=== PATIENT | male | born 2000 | race Caucasian/White ===

== ENCOUNTER → 2020-12-15 09:44 | Outpatient (CLI) | payer OTHER, SELFPAY ==
--- NOTE | 2020-12-15 09:50 | DI.MRI.S_ITS ---
PROCEDURE: MR KNEE RT WO CON INDICATIONS: Pain Rt Knee TECHNIQUE: Noncontrast sagittal PD fast spin echo and T2 fast spin echo with fat saturation, sagittal 3-D FLASH with fat saturation; coronal T1 spin echo and PD fast spin echo with fat saturation, and axial PD fast spin echo with fat saturation through the knee. COMPARISON: None. FINDINGS: Image quality: There is mild inhomogeneous fat saturation. Menisci: There is mild intermediate signal in the posterior horn of the medial meniscus without a discrete tear involving an articular surface. The lateral meniscus demonstrates normal morphology and signal. The meniscal root ligaments appear intact. Cruciate ligaments: The anterior and posterior cruciate ligaments appear intact. Medial structures: The medial collateral ligament appears intact. The semimembranosus tendon insertions and meniscocapsular junction appear intact. Visualized portions of the pes anserinus tendons appear intact without associated bursal fluid collections. Lateral structures: The lateral collateral ligament, long and short heads of the biceps femoris tendon appear intact. The popliteus tendon appears intact. Iliotibial band appears normal. Anterior structures: The quadriceps and patellar tendons appear intact. There is mild lateral tilt and shift of the patella. No femoral trochlear dysplasia or ventral trochlear prominence. No edema in the infrapatellar fat pad. Bones and cartilage: No bone marrow contusions or fractures. There is mild cartilage thinning in the lateral patellofemoral compartment with mild superficial chondral fraying. The articular cartilage in the medial and lateral compartments appear preserved in thickness. Joint space: There is physiologic knee joint fluid. There is trace fluid in the expected region of a Diallo's cyst. Normal appearing synovial plicae are incidentally noted. IMPRESSION: 1. No definite acute internal derangement. 2. Mild lateral tilt and shift of the patella with mild cartilage thinning laterally in the patellofemoral compartment. No associated edema in the infrapatellar fat to suggest impingement but correlation is recommended clinically. Dictated by: Hiram Lucas M.D. on 12/17/2020 at 11:54 Approved by: Hiram Lucas M.D. on 12/17/2020 at 11:58
== END ==
PROVIDERS: Referring Provider Family Medicine; Visit Provider Family Medicine
DX: M25.561 Pain in right knee (principal)
CPT/HCPCS: 73721

== ENCOUNTER 2024-08-27 09:13 | Emergency (ER) | payer OTHER, SELFPAY ==
[2024-08-27] VITALS (7 sets, daily range): BP systolic 108–134; BP diastolic 58–85; PULSE 83–97; RESP 18; TEMP 36.8; O2SAT 95–99; BMI 31.7
--- NOTE | 2024-08-27 09:17 | ED_ITS ---
HPI - Fall General Chief Complaint: Extremity Injury, Lower Stated Complaint: fell, trouble walking, back pain Time Seen by Provider: 08/27/24 09:17 History of Present Illness HPI Narrative: 24-year-old male with past medical history of chronic low back/right hip pain status post right hips muscle surgery after trauma several years ago at [place], comes into the ED from home for evaluation of exacerbation of low back pain. States that on Thursday he was on top of a log slipped fell and landed onto his right junior and buttock region, Pap complaining of any pain to the right junior but having worsening of his low back pain to the right side. Normally uses a cane at baseline. Patient states he has not having any numbness weakness tingling above his baseline to his lower extremities, he denies any saddle paresthesias denies any bowel or urinary incontinence or retention. States that he is in the process following up with a pain management doctor for his chronic low back pain, however he states that he has not been able to manage this at home therefore decided come into the ED for further evaluation treatment. States that he did not have any head strike when he did have the fall. Not on any blood thinner no other injuries or complaints at this time Related Data Previous Rx's Medication Instructions Recorded diazepam 5 mg tablet (Valium) 5 mg PO BEDTIME PRN muscle spasm 5 08/27/24 days #5 tabs oxycodone-acetaminophen 5 mg-325 1 tab PO TID PRN pain 3 days #9 08/27/24 mg tablet (Percocet) tabs prednisone 20 mg tablet 40 mg (2 x 20 mg) PO DAILY 5 days 08/27/24 #10 tabs Allergies Allergy/AdvReac Type Severity Reaction Status Date / Time No Known Drug Allergies Allergy Verified 08/27/24 09:32 Review of Systems Review of Systems Narrative: General: Denies fever, chills, weight loss HEENT: Denies headache, eye drainage, eye irritation, head trauma, sore throat, voice change Cardiovascular: Denies any chest pain, palpitations, shortness of breath, tachycardia Respiratory: Denies any shortness of breath, cough, wheeze, stridor GI/: Denies any abdominal pain, nausea, vomiting, diarrhea, bright red blood per rectum, melanotic stools, urinary frequency, urinary retention, dysuria, hematuria MSK: Positive lumbar pain Skin: Denies any rashes, lesions, discoloration Neuro: Denies any headache, lightheadedness, dizziness, fainting, weakness Psych: Denies SI/HI Patient History Social History Smoking Status: Current every day smoker Exam Narrative Exam Narrative: General: Cooperative, comfortable, well-developed, not in acute distress HEENT: Normocephalic, atraumatic, PERRLA, normal sclera, eyelids normal, Neck: Active full range of motion, atraumatic Chest: Normal to inspection, negative crepitus, no overlying erythema ecchymosis Respiratory: Normal respiratory effort, not in acute respiratory distress, clear to auscultation bilaterally negative cough, wheeze, tachypnea, rhonchi, rales Cardiology: Regular rate rhythm negative gallop, murmur, rubs GI/: Normal to inspection, soft, nonrigid, no tenderness to palpation, exam deferred MSK: Full range of active range of motion of all 4 extremities, atraumatic, patient is able to stand walk however slowed with his cane which is his baseline, there is no tenderness to palpation of the midline lumbar thoracic spine however there is paraspinal tenderness to palpation in the right side along the gluteal muscle as well. Neurovascularly intact bilateral lower extremities Skin: No rashes lesions noted Neuro: Alert awake oriented x3, moves all 4 extremities spontaneously, cranial nerves intact, able to answer all questions appropriately follows commands appropriately Psych: Cooperative, negative suicidal or homicidal ideations Initial Vital Signs Initial Vital Signs: Vital Signs Pulse Rate 94 H 08/27/24 09:23 Blood Pressure 134/78 08/27/24 09:23 Pulse Oximetry 99 08/27/24 09:23 Course Orders Ordered: ED Orders 08/27/24 09:24 CT lumbar spine wo con Stat Discontinued Medications Diazepam (Diazepam 5 Mg Tablet) 5 mg PO NOW ONE Stop: 08/27/24 09:25 Last Admin: 08/27/24 09:34 Dose: 5 mg Documented By: TC Ketorolac Tromethamine (Ketorolac 30 Mg/Ml Vial) 15 mg IM NOW ONE Stop: 08/27/24 09:25 Last Admin: 08/27/24 09:34 Dose: 15 mg Documented By: TC Lidocaine (Lidocaine 5% Patch) 1 each TOP NOW ONE Stop: 08/27/24 09:25 Last Admin: 08/27/24 09:35 Dose: 1 each Documented By: ISABEL Prednisone (Prednisone 20 Mg Tablet) 60 mg PO NOW ONE Stop: 08/27/24 09:25 Last Admin: 08/27/24 09:35 Dose: 60 mg Documented By: TC Vital Signs Vital signs: Vital Signs - 8 hr 08/27/24 09:23 08/27/24 09:23 08/27/24 09:26 Temperature 98.3 F Pulse Rate 94 H 92 H Pulse Rate [Right Dorsalis Pedis] Respiratory Rate 18 Blood Pressure 134/78 134/78 Pulse Oximetry 99 97 Oxygen Delivery Method Room Air 08/27/24 09:30 08/27/24 09:30 08/27/24 09:33 Temperature Pulse Rate 97 H Pulse Rate [Right Dorsalis Pedis] 90 Respiratory Rate Blood Pressure 134/85 Pulse Oximetry 98 Oxygen Delivery Method 08/27/24 09:53 08/27/24 09:53 08/27/24 10:00 Temperature Pulse Rate 84 Pulse Rate [Right Dorsalis Pedis] Respiratory Rate Blood Pressure 130/67 113/58 L Pulse Oximetry 99 Oxygen Delivery Method 08/27/24 10:00 Temperature Pulse Rate 83 Pulse Rate [Right Dorsalis Pedis] Respiratory Rate Blood Pressure Pulse Oximetry 95 Oxygen Delivery Method MDM - Fall Differential Diagnosis Differential diagnosis: Likely other (Lumbar fracture, muscle spasm, lumbar strain) Imaging Data CT lumbar spine: Radiologist's Impression: [place] [address] CT Scan Report Signed Patient: LAWRENCE LI MR#: [id number] : 2000 Acct:[id number] Age/Sex: 24 / M Date of Service: 08/27/24 Loc: ED Accession Number: [id number] Procedure: CT lumbar spine wo con Ordering Provider: Kwasi Mcmahon D.O. PROCEDURE: CT LUMBAR SPINE WO CON INDICATIONS: fall / hx of rt hip sx / back pain TECHNIQUE: Noncontrast 3 mm thick sections acquired from the T12 level to the sacrum. Sagittal and coronal reformats were constructed. For radiation dose reduction, the following was used: automated exposure control. COMPARISON: None. FINDINGS: Image quality: Excellent. Bones: There is normal bony alignment. No acute vertebral body compression fractures. No suspicious lytic or blastic bony lesions. No pars defects. At the disc levels, no evidence of disc bulge, central or foraminal stenosis Soft tissues: No retroperitoneal masses or hematomas. Visualized aorta is normal in caliber. IMPRESSION: Unremarkable CT of the lumbar spine. MDM Narrative Medical decision making narrative: 24-year-old male with a history of chronic low back pain after surgery to his right hip after traumatic injury comes into the ED for exacerbation low back pain after he had a mechanical trip and fall several days ago in which he was on a like fell and landed onto his buttock region. His use a cane at baseline. He is not complaining of any red flags for cauda equina is in the process of follow up with a pain management doctor states appointment is in November. Patient had CT of the lumbar spine performed here. Did not show any acute fractures, patient had significant improvement of symptoms after medication here is able to stand bear weight walk with his cane which is his baseline, patient without any focal neurological deficits states he will follow up with his primary care doctor as well as his pain management doctor for his scheduled appointment, he was given strict return precautions he verbalized understanding of this and agrees to being discharged home with outpatient follow up Discharge Plan Departure Patient Disposition: Home Clinical Impression: Acute on chronic low back pain Instructions: DI for Low Back Pain Activity Restrictions/Additional Instructions: Please follow up with your primary care doctor and your pain management doctor for your scheduled appointment Please read the discharge instructions sheet carefully and bring all papers to all doctor follow-up visits, as it may contain information that your doctor may want to see. Disease processes change and evolve, if your symptoms worsen or if you develop any new symptoms that are concerning to you please return for evaluation. Your evaluation today does not show any evidence of any life- threatening/serious illnesses requiring admission to the hospital or surgery. Please follow-up with your doctor for re-evaluation in approximately 1 day. Seek immediate medical attention for any worrisome symptoms. *If you do not have a primary care provider please contact the [facility] Resource line at [phone]. They will ask some questions about your medical history and help get you set up with a doctor in the community. Prescriptions: New diazepam [Valium] 5 mg tablet 5 mg PO BEDTIME PRN (Reason: muscle spasm) 5 Days Qty: 5 0RF oxycodone-acetaminophen [Percocet] 5-325 mg tablet 1 tab PO TID PRN (Reason: pain) 3 Days Qty: 9 0RF prednisone 20 mg tablet 40 mg PO DAILY 5 Days Qty: 10 0RF Stand Alone Forms: Patient Portal/API/Survey
--- NOTE | 2024-08-27 09:24 | DI.CT.S_ITS ---
PROCEDURE: CT LUMBAR SPINE WO CON INDICATIONS: fall / hx of rt hip sx / back pain TECHNIQUE: Noncontrast 3 mm thick sections acquired from the T12 level to the sacrum. Sagittal and coronal reformats were constructed. For radiation dose reduction, the following was used: automated exposure control. COMPARISON: None. FINDINGS: Image quality: Excellent. Bones: There is normal bony alignment. No acute vertebral body compression fractures. No suspicious lytic or blastic bony lesions. No pars defects. At the disc levels, no evidence of disc bulge, central or foraminal stenosis Soft tissues: No retroperitoneal masses or hematomas. Visualized aorta is normal in caliber. IMPRESSION: Unremarkable CT of the lumbar spine. Approved by: Navjot Stovall M.D. on 08/27/2024 at 9:09
[2024-08-27] MEDS: diazePAM 5 MG TABLET PO (09:34)
[2024-08-27] MEDS: KETOROLAC 30 MG/ML VIAL 15 MG IM (09:34)
[2024-08-27] MEDS: LIDOCAINE 5% PATCH 1 EACH TOP (09:35)
[2024-08-27] MEDS: predniSONE 20 MG TABLET 60 MG PO (09:35)
== END 2024-08-27 10:45 | disposition home or self-care (01) ==
PROVIDERS: Emergency Provider Student in an Organized Health Care Education/Training Program
DX: M54.50 Low back pain, unspecified (principal); W18.30XA Fall on same level, unspecified, initial encounter; F17.210 Nicotine dependence, cigarettes, uncomplicated
CPT/HCPCS: 72131; 96372; 99283; 99284; J1885